=== PATIENT | female | born 2000 | race Caucasian/White ===

== ENCOUNTER 2022-03-08 07:49 | Emergency (ER) | payer OTHER ==
[~2022-03-08] VITALS: Ht 154.9 cm; Wt 51.4 kg
[2022-03-08 08:05] LABS: COVID AG,FIA SOURCE NASAL SWAB
[2022-03-08 08:32] VITALS: BP 112/76
[2022-03-08 08:34] LABS: INFLUENZA TYPE A NEGATIVE FOR TYPE A (NEGATIVE); INFLUENZA TYPE B NEGATIVE FOR TYPE B (NEGATIVE)
== END 2022-03-08 09:20 | disposition home or self-care (01) ==
LOC: EMS 07:49
DX: U07.1 COVID-19 (principal)
CPT/HCPCS: 87804; 99283

== ENCOUNTER 2023-09-04 06:52 | Emergency (ER) | payer OTHER ==
[~2023-09-04] VITALS: Ht 154.9 cm; Wt 59.1 kg
[2023-09-04] MEDS: SODIUM CHLORIDE 0.9% 1,000 ML IV ONE (07:41)
[2023-09-04] MEDS: THIAMINE 100 MG/ML 2 ML VIAL IVP ONE (09:08)
[2023-09-04 11:37] VITALS: BP 92/55; PULSE 85; RESP 27
== END 2023-09-04 12:06 | disposition home or self-care (01) ==
LOC: EMS 06:53
DX: F10.129 Alcohol abuse with intoxication, unspecified (principal); Y90.9 Presence of alcohol in blood, level not specified
CPT/HCPCS: 99283; 96374; 96361; 36415; G0480; J3411